=== PATIENT | female | born 1995 | race Caucasian/White ===

== ENCOUNTER 2021-04-12 18:45 | Emergency (ER) | payer OTHER | END 2021-04-12 19:54 | disposition left against medical advice (07) | LOC: ER1 18:45 | DX: Z53.21 Procedure and treatment not carried out due to patient leaving prior to being seen by health care provider (principal) ==

== ENCOUNTER 2021-07-28 11:06 | Emergency (ER) | payer OTHER ==
[2021-07-28] MEDS ORDERED: BENADRYL25 MG PO (13:01)
[2021-07-28] MEDS ORDERED: MEDROL DOSEPAK 24 MG PO (13:01)
== END 2021-07-28 13:20 | disposition home or self-care (01) ==
LOC: ER1 11:06
DX: T78.1XXA Other adverse food reactions, not elsewhere classified, initial encounter (principal); R21 Rash and other nonspecific skin eruption; J45.909 Unspecified asthma, uncomplicated
CPT/HCPCS: 96374; 96375; 99282; J1200; J2930

== ENCOUNTER 2021-11-21 09:58 | Emergency (ER) | payer OTHER ==
[~2021-11-21 09:58] MED LIST: BENADRYL25 MG PO; MEDROL DOSEPAK 24 MG PO
[2021-11-21] MEDS ORDERED: CYCLOBENZAPRINE10 MG PO (11:53)
[2021-11-21] MEDS ORDERED: NAPROSYN500 MG PO (11:53)
== END 2021-11-21 12:04 | disposition home or self-care (01) ==
LOC: ER1 09:58
DX: S39.012A Strain of muscle, fascia and tendon of lower back, initial encounter (principal); M25.462 Effusion, left knee; F17.200 Nicotine dependence, unspecified, uncomplicated; V43.52XA Car driver injured in collision with other type car in traffic accident, initial encounter; Y92.410 Unspecified street and highway as the place of occurrence of the external cause
CPT/HCPCS: 29505; 72131; 73564; 96372; 99284; J1885

== ENCOUNTER 2022-03-12 16:30 | Emergency (ER) | payer OTHER ==
[~2022-03-12 16:30] MED LIST changes: +CYCLOBENZAPRINE10 MG PO; +NAPROSYN500 MG PO
[2022-03-12 17:18] LABS: HEMOGLOBIN 13.6 gm/dl (12.3-15.3); RED BLOOD COUNT 4.81 M/UL (4.00-5.10); WHITE BLOOD COUNT 11.1 K/UL (4.5-11.0)
[2022-03-12 17:40] LABS: BUN/CREATININE RATIO 26 (0-10)
[2022-03-12] MEDS ORDERED: BENTYL 20MG TAB20 MG PO (20:45)
[2022-03-12] MEDS ORDERED: ZOFRAN ODT 4 MG4 MG PO (20:45)
[2022-03-12] MEDS ORDERED: OMNICEF 300 MG300 MG PO (20:45)
[2022-03-12] MEDS ORDERED: IBUPROFEN600 MG PO (20:45)
[2022-03-12] MEDS ORDERED: MACROBID 100 M100 MG PO (20:46)
== END 2022-03-12 21:02 | disposition home or self-care (01) ==
LOC: ER1 16:30
DX: N39.0 Urinary tract infection, site not specified (principal); K80.50 Calculus of bile duct without cholangitis or cholecystitis without obstruction; Z88.0 Allergy status to penicillin; Z88.1 Allergy status to other antibiotic agents
CPT/HCPCS: 80053; 81001; 83690; 84703; 85025; 96374; 96375; 99284; J1885; J2405; Q9967